=== PATIENT | male | born 1985 | race Caucasian/White ===

== ENCOUNTER 2021-09-18 19:11 | Emergency (ER) | payer OTHER ==
[~2021-09-18] VITALS: Ht 162.6 cm; Wt 86.2 kg
--- NOTE | 2021-09-18 19:31 | NUR ---
PT BIBSELF C/O R RADIAL FRACTURE 2 DAYS AGO S/P [facility]. CAST ON WRIST FROM HOSPITAL VISIT 2 DAYS AGO. REQUESTING PAIN MED REFILL. PT A/OX4. TOLERATING R/A WELL WITH NO SOB. PT AMBULATORY WITH STEADY GAIT
[2021-09-18] MEDS ORDERED: HYDROCODONE/APAP 5/325MG TABLET ONE (19:51)
[2021-09-18] MEDS ORDERED: HYDR-4303 PO (19:54)
[2021-09-18] MEDS ORDERED: HYDROCODONE/APAP 5/325MG TABLET PO ONE (20:00)
[2021-09-18 20:03] VITALS: BP 130/72
--- NOTE | 2021-09-18 20:03 | NUR ---
Patient discharged to home in stable condition. Written and verbal after care instructions given. Patient verbalizes understanding of instruction.
== END 2021-09-18 20:04 | disposition home or self-care (01) ==
LOC: ER 19:27
DX: S52.591A Other fractures of lower end of right radius, initial encounter for closed fracture (principal); W11.XXXA Fall on and from ladder, initial encounter; Y93.89 Activity, other specified; Y92.89 Other specified places as the place of occurrence of the external cause; Y99.8 Other external cause status